=== PATIENT | female | born 1990 | race African-American/Black ===

== ENCOUNTER 2017-07-13 09:58 | Day surgery (SDC) | payer OTHER ==
[2017-07-13 10:09] VITALS: BMI 34.5
[2017-07-13] MEDS ORDERED: Acetaminophen 500 MG TAB PO SCH (11:15)
[2017-07-13] MEDS ORDERED: Morphine 10 MG/ML VIAL IM SCH (11:30)
--- NOTE | 2017-07-13 11:52 | ER ---
DATE OF ENCOUNTER: 07/13/2017 OB ER ENCOUNTER PRIMARY PHLEBOTOMIST LAB ASSISTANT: Dr. Lily Edwards. CHIEF COMPLAINT: Abdominal pains. HISTORY OF PRESENT ILLNESS: The patient is a 27-year-old G4, P2 female with an intrauterine at 37 weeks today, who is followed by Dr. Edwards. She has a history of 2 previous C-sections and is presenting today with abdominal pain. The patient was evaluated earlier this morning in [place] and was found to be fingertip, but not laboring. Patient admits that her pain has been more of the chronic nature, associated with activity and movement and that she is just tired of this point in her . The patient does reports she is having contractions, but her primary pain is in her abdomen with activity and shooting into her vaginal and labial region. She has small children at home that she has been caring for, which has exacerbated her problem. She believes that her most current problem started after spending a long day outdoors walking and supporting her children in a sporting event. The patient denies fever, headache, chest pain, shortness of breath, nausea, vomiting, diarrhea, constipation. She denies new rashes. She denies vaginal bleeding, leakage of fluid, or urinary problems. Patient has Tylenol #3 at home that she reports has not been helpful. PAST MEDICAL HISTORY: Negative. PAST SURGICAL HISTORY: Previous x2. ALLERGIES: No known drug allergies. SOCIAL HISTORY: Denies drug, alcohol, or tobacco use. MEDICATIONS: vitamins and then Tylenol #3 for a tooth problem. OB LABS: Unavailable at time of dictation. REVIEW OF SYSTEMS: Per HPI. PHYSICAL EXAMINATION: VITAL SIGNS: Blood pressure is 121/83, heart rate of 83, respiratory rate of 18 , satting 99% on room air, temperature is 98.5. GENERAL: She appears to be in no acute distress. She is alert and oriented, cooperative, and pleasant to interact with. HEENT: Head is normocephalic, atraumatic. LUNGS: Clear to auscultation bilaterally. HEART: Regular rate and rhythm. ABDOMEN: Gravid, but soft. She does have some tenderness to deviation of the uterus and in the lower pelvic region. EXTREMITIES: Nontender with minimal edema bilaterally. EXAM: Cervix is closed, thick, and high per nursing staff. heart tracing performed for abdominal pains. Baselines noted to be in the 130s with moderate long-term variability, positive accelerations, no decelerations. Tocometer showing some irritability, but no consistent contraction pattern. After discussing the patient's current situation, she is very accepting with the knowledge that she is not in active labor. We are addressing to help her with her pain temporarily. I have offered her 8 mg of morphine IM, which should be able to give her some rest for the next several hours and 2 Tylenol. I have encouraged her to take her Tylenol or Tylenol 3 every 6 hours on a regular basis as needed for improvement of her pain. The patient has an appointment with Dr. Edwards on Friday. She has a scheduled date for her C- section. The fetus is reassuring and reactive. The patient is being discharged home. BEVERLEY
== END 2017-07-13 11:50 | disposition home or self-care (01) ==
LOC: L&D/OP 09:58
PROVIDERS: ATTEND Obstetrics & Gynecology
DX: O99.89 Other specified diseases and conditions complicating pregnancy, childbirth and the puerperium (principal); R10.9 Unspecified abdominal pain; Z3A.37 37 weeks gestation of pregnancy; Z98.891 History of uterine scar from previous surgery
CPT/HCPCS: 96372; 99282; J2270

== ENCOUNTER 2017-07-16 00:56 | Day surgery (SDC) | payer OTHER ==
[2017-07-16 01:39] VITALS: BMI 34.5
--- NOTE | 2017-07-16 03:51 | PRG ---
OB ER ENCOUNTER DATE OF ENCOUNTER: 07/16/2017 PRIMARY BUSINESS CONTROL MANAGER: Dr. Lily Edwards. CHIEF COMPLAINT: Vaginal spotting and decreased movement. HISTORY OF PRESENT ILLNESS: Patient is a 27-year-old G4, P2 female with an intrauterine at 37 weeks and 3 days, followed by Dr. Edwards. Patient has a history of 2 previous C sections and is scheduled on 07/31/2017 to have a repeat scheduled section. Patient reports that today when she went to the bathroom that she noticed some spotting, she also reports that she has not had any move ment since about 2:00 this afternoon until she got here to the hospital. She denies uterine contract ions, leakage of fluid, any other spotting or bleeding. She denies any falls, fever, headache, chest pain, shortness of breath, any nausea, vomiting, diarrhea, constipation. She denies rash, any urina ry urgency, frequency. PAST MEDICAL HISTORY: Anemia. PAST SURGICAL HISTORY: She has had wisdom teeth removed in 2010 and two previous C-sections. SOCIAL HISTORY: Denies drug, alcohol, or tobacco use. ALLERGIES: No known drug allergies. MEDICATIONS: vitamins. Blood type A positive, antibody screen is negative, HIV of the first and third trimester is nonreacti ve. RPR in the first and third trimester is nonreactive. Hepatitis B surface antigen is nonreactive . Blood type is A positive, antibody screen is negative. She is rubella immune. REVIEW OF SYSTEMS: Per HPI. PHYSICAL EXAMINATION: VITAL SIGNS: Blood pressure is 117/76, heart rate of 91, respiratory rate of 16, satting 99% on room air, temperature 98.5. GENERAL: She appears to be in no acute distress. She is alert and oriented, cooperative and pleasan t to interact with. HEAD: Normocephalic, atraumatic. LUNGS: Clear to auscultation bilaterally. HEART: Regular rate and rhythm. ABDOMEN: Gravid and soft, nontender. EXTREMITIES: Nontender, nonedematous. CERVICAL EXAM: Per nursing staff, she is closed, thick, and high. There is no bleeding on the glove . heart tracing performed for decreased movement. Fetus noted to have a heart rate in the 140s with moderate long-term variability, positive accelerations, no decelerations. Tocometer shows some irritability. ASSESSMENT AND PLAN: Patient is a 27-year-old G4, P2 female with an intrauterine at 37 wee ks with some isolated spotting and decreased movement. Patient has been given reassurance with a reactive NST and no more evidence of bleeding at this time. Patient, although there is no evidenc e at this point of anything to be concerned, patient is uncomfortable going home. We will monitor th e patient for a few more hours for any spotting. Patient has been given instructions to notify the n ursing staff if she notices any more spotting or bleeding.
== END 2017-07-16 03:55 | disposition home health service (06) ==
LOC: EEVIPCON 00:56 → L&D/OP 00:56
PROVIDERS: ATTEND Obstetrics & Gynecology
DX: O26.853 Spotting complicating pregnancy, third trimester (principal); O36.8130 Decreased fetal movements, third trimester, not applicable or unspecified; Z79.899 Other long term (current) drug therapy; Z3A.37 37 weeks gestation of pregnancy; Z98.891 History of uterine scar from previous surgery
CPT/HCPCS: 99282

== ENCOUNTER 2018-12-02 16:50 | Inpatient (IN) | payer OTHER ==
[2018-12-02 17:39] VITALS: BMI 36.8
[2018-12-02] MEDS ORDERED: Ondansetron PF 4 MG/2 ML Vial IVP PRN (18:00)
[2018-12-02] MEDS ORDERED: Acetaminophen 500 MG TAB PO PRN (18:00)
[2018-12-02] MEDS ORDERED: Butorphanol Tartrate 1 MG/ML VIAL SLOW IVP PRN (18:00)
[2018-12-02] MEDS ORDERED: Promethazine HCl 25 MG/ML VIAL IM PRN (18:00)
[2018-12-02] MEDS ORDERED: hydrALAZINE 20 MG/ML VIAL SLOW IVP PRN (18:00)
--- NOTE | 2018-12-02 18:10 | PDOC.LDHP ---
Labor and Delivery H&P Chief complaint: other HPI: 28 yo @ 35w6d by LMP c/w 11 week CRL who presents for admission from clinic due to oligohydramnios. Amnisure neg. H/O CS x3 and h/o PPROM, now on [place]. Carrier of sickle cell trait. Current gestational age (weeks): 35 Dating criteria: last menstrual period Grav: 5 Para: 3 OB History Details: 2 term CS 1 CS for PPROM @ 36 weeks 1 SAB Current complications: none Abnormal US findings: Yes (DOMINIQUE 4.5 today ) Past Medical History: Anemia Current medications: pre-yamilex vitamins, iron Previous surgical history: low tranverse CS (x3) Allergies/Adverse Reactions: Allergies Allergy/AdvReac Type Severity Reaction Status Date / Time No Known Allergies Allergy Verified 12/02/18 17:40 Social history: none - Physical Exam Vital signs reviewed and normal: yes General: NAD Heart: RRR Lungs: nonlabored breathing Abdomen: gravid Extremeties: no edema FHT: category 1 [place] contractions every: rare ctx - Vaginal Exam cm dilated: 0 (cephalic) Effacement: 0% Station: -3 - OB Labs Blood type: A RH: positive Antibody Screen: negative HIV: negative RPR: negative HEPSAg: negative 1 hour GCT: negative GBS: unknown Urine drug screen: negative Rubella: immune Additional Labs: SS wnl - Assessment 35w6d IUP Oligohydramnios Previous CS x3 Anemia - Plan Plan: observation in L&D, informed consent obtained, anesthesia consult for pain management -: Admit for observation, IVF hydration and BMTZ course. Repeat sono tomorrow Delivery pending sono tomorrow. T&C 2 untis RRS was declined by ethics committee
[2018-12-02] MEDS: Lactated Ringer's 1,000 ML IV SCH (18:41)
[2018-12-02 19:08] LABS: Hemoglobin 9.4 g/dL (12.0-16.0); Mean Corpuscular HGB CONC 33.5 g/dL (32.0-36.0); Mean Corpuscular Hemoglobin 24.8 pg (27.0-31.0); Mean Platelet Volume 9.3 fL (7.4-10.4); Platelet Count 316 thou/uL (130-400); Red Blood Cell (RBC) Count 3.77 mill/uL (4.20-5.40); White Blood Cell (WBC) Count 9.7 thou/uL (4.8-10.8)
[2018-12-02] MEDS: Betamet Acet/Betamet Na Ph 30 MG/5 ML VIAL IM SCH (19:28)
[2018-12-02 19:40] LABS: Syphilis Antibody Nonreactive (Nonreactive); Syphilis Antibody Index 0.06 S/CO (<1.00 Non-Reactive)
[2018-12-02 19:47] LABS: HBSAg Index 0.32 S/CO (0-0.99); HIV (1/2) Antibody/Antigen Non-Reactive (NonReactive); HIV 1/2 INDEX 0.25 S/CO (<1.00); Hep B Surf Ag Non-Reactive S/CO (NonReactive)
[2018-12-03] MEDS: Lactated Ringer's 1,000 ML IV SCH ×3 (01:12→17:42)
--- NOTE | 2018-12-03 07:55 | PDOC.LDPN ---
Labor & Delivery Progress Note - Subjective Subjective: comfortable - Objective Vital signs reviewed and normal: yes General: NAD Uterine fundus: non tender FHT: category 1 (120s, mod dionicio, +accels, no decels) [place] contractions every: no ctx - Assessment (1) 36 weeks gestation of Code(s): Z3A.36 - 36 WEEKS GESTATION OF Current Visit: Yes Status : Acute (2) Oligohydramnios Code(s): O41.00X0 - OLIGOHYDRAMNIOS, UNSP TRIMESTER, NOT APPLICABLE OR UNSP Current Visit: Yes Status: Acute -: Continue IVF and complete BMTZ Repeat sono for DOMINIQUE this morning. Keep NPO at this time, pending sono to determine delivery plan
--- NOTE | 2018-12-03 09:36 | ULT ---
Exam: NONSTRESS BIOPHYSICAL PROFILE: HISTORY: 35-weeks patient. Oligohydramnios. Comparison: None TECHNIQUE: Nonstress biophysical profile was performed. FINDINGS: Single intrauterine gestation with vertex presentation. Anterior placenta. Cervical length is 3.6 cm heart tones with a rate of 123 bpm Amniotic fluid index is 3.5 cm Nonstress biophysical profile: tone: 2 breathin movements: 2 Amniotic fluid: 0 Total score 4 out of 8: IMPRESSION: 1. Single intrauterine gestation with heart tones. 2. Nonstress biophysical profile score is 4 out of 8. Results were given to L&D nurse Dasia by the photographic process worker on 12/03/2018 at the time of the examination. Code CR Transcribed Date/Time: 12/03/2018 10:10 AM
[2018-12-03] MEDS: Betamet Acet/Betamet Na Ph 30 MG/5 ML VIAL IM SCH (09:49)
--- NOTE | 2018-12-03 11:32 | PDOC.EVN ---
Event Note - Event Note Event Note: BPP 6/10 despite hydration. FHTS currently cat 1 Will proceed with RCS today s/p BMTZ x2
[2018-12-03] MEDS ORDERED: CEFAZOLIN 2 GM, Admixture Fee 1 EACH in Sodium Chloride 0.9% 100 ML IVPB SCH (11:45)
[2018-12-03] MEDS ORDERED: CEFAZOLIN 2 GM in Premix Bag 1 BAG IVPB SCH (11:45)
[2018-12-03] MEDS ORDERED: Bicitra 30 ML UDCUP PO SCH (11:45)
[2018-12-03] MEDS ORDERED: Ondansetron PF 4 MG/2 ML Vial IVP PRN ×2 (13:27→15:35)
[2018-12-03] MEDS ORDERED: Naloxone HCl 0.4 mg/ml Vial IVP PRN ×4 (13:27→15:35)
[2018-12-03] MEDS ORDERED: Naloxone HCl 0.4 mg/ml Vial IV PRN ×2 (13:27→15:35)
[2018-12-03] MEDS ORDERED: Promethazine HCl 25 MG SUPP PR PRN ×2 (13:27→15:35)
[2018-12-03] MEDS ORDERED: Ketorolac Tromethamine 30 MG/ML VIAL IVP PRN (13:27)
[2018-12-03] MEDS ORDERED: Promethazine HCl 25 MG/ML VIAL IM PRN ×2 (13:27→15:35)
[2018-12-03] MEDS ORDERED: diphenhydrAMINE 50 MG/ML VIAL IVP PRN ×2 (13:27→15:35)
[2018-12-03] MEDS ORDERED: L&D-Morphine 4 MG/ML VIAL SLOW IVP PRN ×2 (13:28→15:22)
[2018-12-03] MEDS ORDERED: Meperidine HCl/PF 25 MG/ML VIAL SLOW IVP PRN ×2 (13:28→15:22)
[2018-12-03] MEDS ORDERED: HYDROmorphone 2 MG/ML VIAL SLOW IVP PRN ×2 (13:28→15:22)
[2018-12-03] MEDS ORDERED: Ondansetron HCl/PF 4 MG/2 ML Vial IVP PRN ×2 (13:28→15:22)
[2018-12-03] MEDS ORDERED: Communication Order-Pharmacy FS SCH ×2 (13:30→15:45)
[2018-12-03] MEDS ORDERED: Ketorolac Tromethamine 30 MG/ML VIAL IVP SCH ×2 (13:30→15:30)
[2018-12-03] MEDS ORDERED: MORPHINE 5 MG/10 ML PF VIAL ONE (14:18)
[2018-12-03] MEDS ORDERED: ePHEDrine/0.9% NaCl/PF SYRINGE 50 mg/10 ml ONE (14:19)
[2018-12-03] MEDS ORDERED: Oxytocin 10 UNITS/ML VIAL ONE ×2 (14:19→15:30)
--- NOTE | 2018-12-03 15:13 | OP ---
DATE OF PROCEDURE: 12/03/2018 MANAGER CHEMICAL NOTE: LOCATION: Labor and Delivery. PRINCIPAL SURGEON: Lily Edwards DO. ASSISTANTS: 1. Tim Medina MD. 2. Natasha Curry MD. PROCEDURE: Repeat Low Transverse Section Course: In brief, this is a patient who is at 36 weeks with oligohydramnios, prior , whom Dr. Edwards has elected to deliver by a repeat . I arrived to Labor and Delivery OR and assisted with the repeat , which occurred without complication. This was performed via Pfannenstiel skin incision. There were no intraabdominal pelvic adhesions. I was present from the start of the surgical case until uterine closure. At the time of uterine closure, and after confirming hemostasis, Dr. Natasha Curry, who was also scrubbed in, stepped in as first grade teacher and continued with the abdominal wall closure. Job ID: [id number] MTDD
--- NOTE | 2018-12-03 16:18 | PDOC.OPDEL ---
OB Operative/Delivery Note Delivery Dr/Surgeon: Lily Edwards DO Assist: Tim Medina MD Pre-Delivery Diagnosis: medically indicated induction Procedure/Post Delivery Dx: repeat low transverse CS Weeks gestation: 36 Anesthesia: spinal - Findings A Sex: male - 1 min: 8 - 5 min: 9 - Additional Findings/Plan Placenta delivered: spontaneous findings: low transverse hysterotomy without extension, normal uterus, normal tubes, normal ovaries Estimated blood loss: QBL 150 cc Compilations/Other Findings: Dense scar on fascia Thin adhesions from dome of bladder to KELLY Scant clear AF Infant in cephalic presentation Normal appearing placenta Post delivery plan: routine recovery
[2018-12-03] MEDS ORDERED: diphenhydrAMINE 25 MG CAP PO PRN (16:54)
[2018-12-03] MEDS ORDERED: Bisacodyl 10 MG SUPP PR PRN (16:54)
[2018-12-03] MEDS ORDERED: Lanolin Ointment 7 GM TUBE TOP PRN (16:54)
[2018-12-03] MEDS ORDERED: Methylergonovine 0.2 MG/ML VIAL IM PRN (16:54)
[2018-12-03] MEDS ORDERED: hydrALAZINE 20 MG/ML VIAL SLOW IVP PRN (16:54)
[2018-12-03] MEDS ORDERED: NS / Oxytocin 40 units/1000ml 1,000 ML IV SCH (16:54)
[2018-12-03] MEDS ORDERED: Misoprostol 200 MCG TAB PR PRN (16:54)
[2018-12-03] MEDS ORDERED: Acetaminophen 325 MG TAB PO PRN (16:54)
[2018-12-03] MEDS: metroNIDAZOLE 500 MG TAB PO SCH ×2 (17:42→21:00)
[2018-12-03] MEDS: Ketorolac Tromethamine 30 MG/ML VIAL IVP PRN (17:43)
[2018-12-03] MEDS: Simethicone Chewable 80 MG TAB PO PRN (17:46)
[2018-12-03] MEDS: Ferrous Sulfate 325 MG TAB PO SCH (21:00)
[2018-12-03] MEDS: Docusate Calcium (SURFAK) 240 MG CAP PO SCH (21:08)
[2018-12-04] MEDS: Ketorolac Tromethamine 30 MG/ML VIAL IVP PRN (00:11)
[2018-12-04] MEDS ORDERED: Sodium Chloride 0.9% 10 ML ONE (00:26)
[2018-12-04] MEDS ORDERED: Zolpidem Tartrate 5 MG TAB PO PRN (03:45)
[2018-12-04 05:28] LABS: #Lymphocytes 1.7 thou/uL (1.20-3.40); #Monocytes 0.8 thou/uL (0.11-0.59); #Neutrophils 13.7 thou/uL (1.40-6.50); %Basophils 0.1 % (0.0-1.0); %Eosinophils 0.1 % (0.0-10.0); %Lymphocytes 10.7 % (21.0-51.0); %Monocytes 4.7 % (0.0-10.0); %Neutrophils 84.4 % (42.0-75.0); Hemoglobin 8.8 g/dL (12.0-16.0); Mean Corpuscular Hemoglobin 24.4 pg (27.0-31.0); Mean Corpuscular Volume 73.8 fL (78.0-98.0); Mean Platelet Volume 8.7 fL (7.4-10.4); Platelet Count 305 thou/uL (130-400); RBC Distribution Width 14.8 % (11.5-14.5); Red Blood Cell (RBC) Count 3.62 mill/uL (4.20-5.40); White Blood Cell (WBC) Count 16.3 thou/uL (4.8-10.8)
[2018-12-04] MEDS: HYDROcodone/Acetaminophen 5/325 mg Tablet PO PRN ×3 (06:54→19:52)
--- NOTE | 2018-12-04 08:03 | PDOC.PP ---
Post Progress Note Post Day #: 1 Subjective: Pain controlled. Minimal lochia. Freire just removed. Breast feeding. PO intake tolerated: yes Flatus: yes Ambulation: yes Vital Signs (12 hours) Temp Pulse Resp BP 12/04/18 04:00 97.9 F 69 17 118/62 12/04/18 00:00 98.1 F 68 17 120/65 Weight Weight 195 lb - Physical Examination General: NAD Cardiovascular: RRR Respiratory: non-labored breathing Abdominal: no distention, appropriately TTP Fundus firm & at: below umbilicus Extremities: negative homans (B) Skin: CS incision dry & intact, no rash Neurological: no gross focal deficits Psychiatric: A&Ox3, normal affect Result Diagrams: 12/04/18 05:14 Additional Labs: Post Labs Blood Type A POSITIVE 12/02/18 19:56 Hep Bs Antigen Non-Reactive S/CO (NonReactive) 12/02/18 18:49 (1) 36 weeks gestation of Code(s): Z3A.36 - 36 WEEKS GESTATION OF Status: Resolved (2) Oligohydramnios Code(s): O41.00X0 - OLIGOHYDRAMNIOS, UNSP TRIMESTER, NOT APPLICABLE OR UNSP Status: Resolved (3) Status post repeat low transverse section Code(s): Z98.891 - HISTORY OF UTERINE SCAR FROM PREVIOUS SURGERY Status: Acute (4) Anemia Code(s): D64.9 - ANEMIA, UNSPECIFIED Status: Acute Qualifiers: Anemia type: iron deficiency Iron deficiency anemia type: unspecified iron deficiency Qualified Code(s): D50.9 - Iron deficiency anemia, unspecified (5) Bacterial vaginosis Code(s): N76.0 - ACUTE VAGINITIS; B96.89 - OTH BACTERIAL AGENTS THE CAUSE OF DISEASES CLASSD ELSWHR Status: Acute - Assessment/Plan PPD1 VSSAF Anemia due to chronic + acute, iron BID. Complete flagyl for BV Continue routine PP/post op care. Plan for d/c 1-2 days due to CS and 36 weeks.
[2018-12-04] MEDS: Ibuprofen 800 MG TAB PO SCH ×2 (08:51→17:06)
[2018-12-04] MEDS: Prenatal Vitamin 1 TAB PO SCH ×2 (08:52→08:53)
[2018-12-04] MEDS: metroNIDAZOLE 500 MG TAB PO SCH ×2 (08:52→20:10)
[2018-12-04] MEDS: Ferrous Sulfate 325 MG TAB PO SCH ×2 (08:54→19:52)
[2018-12-04] MEDS: Docusate Calcium (SURFAK) 240 MG CAP PO SCH ×2 (08:55→19:52)
--- NOTE | 2018-12-04 14:34 | OP ---
DATE OF PROCEDURE: 12/03/2018 PREOPERATIVE DIAGNOSES: 1. A 36 weeks and zero day intrauterine . 2. Previous section x3. 3. Persistent oligohydramnios. 4. Biophysical profile, 6/10. POSTOPERATIVE DIAGNOSES: 1. A 36 weeks and zero day intrauterine . 2. Previous section x3. 3. Persistent oligohydramnios. 4. Biophysical profile, 6/10. PROCEDURE PERFORMED: Repeat low-transverse delivery via Pfannenstiel skin incision. ASSISTANTS: Tim Medina MD and Natasha Curry MD. COMPLICATIONS: None. QUANTITATIVE BLOOD LOSS: 150 mL. URINARY OUTPUT: 400 mL. ANESTHESIA: Spinal. FINDINGS: Dense scar along the fascia and rectus muscles. Thin adhesions from the lower uterine segment to the dome of the bladder. Scant clear amniotic fluid. in cephalic presentation. Normal-appearing placenta, normal-appearing fallopian tubes and ovaries bilaterally, and normal-appearing uterus. INDICATIONS FOR PROCEDURE: Ms. Lola Trevino is a 28-year-old, G5, P3, who was admitted at 35 weeks 6 days due to oligohydramnios with an DOMINIQUE of 4.5. She underwent observation with IV fluid hydration. Her repeat sonogram showed an DOMINIQUE of 3.9, and also a total biophysical profile of 6/10. Due to these findings, delivery was recommended and due to her history of 3 prior deliveries, a repeat was arranged. The patient did receive betamethasone for lung maturity prior to delivery. DESCRIPTION OF PROCEDURE: The patient was brought to the operating room. She was placed under spinal anesthesia. The patient was placed in the supine position with a leftward tilt. A Freire catheter was placed. She was prepped and draped in a sterile fashion. An official time-out was performed. She was given Ancef for surgical prophylaxis. A Pfannenstiel skin incision was made using the scalpel and it was carried down to the underlying fascial layer. The fascia was incised in the midline using the scalpel and extended bilaterally using both the scalpel and Batista scissors. The superior aspect of the fascial incision was grasped using Noreen clamps, tented upward, dissected free from the underlying rectus abdominis muscles and the same was done to the inferior aspect. The scar tissue was noted along the midline. The rectus abdominis muscles were grasped with Allis clamps, elevated , and incised using Batista scissors. This incision was extended and the peritoneum was incised using sharp dissection. The peritoneal incision was then extended using blunt dissection. Jaime O retractor was then placed in the abdomen. A low-transverse hysterotomy was made using the scalpel, this was extended using blunt dissection. Amniotic membranes were ruptured noting clear amniotic fluid; however, scant. The infant was delivered in cephalic presentation. The infant's cord was clamped and cut. The infant was handed to the awaiting Neonatology team. Cord blood was obtained. The placenta was delivered spontaneously intact. The uterus was cleared of all clot and debris. Hysterotomy was closed in a running, locking fashion, obtaining hemostasis with 1 Monocryl. The pelvis was irrigated and cleared of all clot and debris, and the bilateral fallopian tubes and ovaries were evaluated and normal in appearance. Jaime O retractor was removed from the abdomen. Again, the hysterotomy was evaluated and normal in appearance. The peritoneum was closed in a running fashion using 2-0 chromic. The rectus abdominis muscles were hemostatic with use of the Bovie. The fascia was closed using 0 PDS. Subcutaneous layer was copiously irrigated and hemostatic with use of the Bovie. Subcutaneous layer was closed using 3-0 Vicryl and the skin was closed using 4-0 Monocryl and Dermabond. There were no complications. All counts were correct x3. The patient and will be transferred to routine recovery. Job ID: [id number] [facility]
[2018-12-04] MEDS: Simethicone Chewable 80 MG TAB PO PRN (20:10)
[2018-12-04] MEDS ORDERED: Ibuprofen 800 MG TAB PO SCH (22:00)
[2018-12-05] MEDS: HYDROcodone/Acetaminophen 5/325 mg Tablet PO PRN ×6 (00:06→20:59)
[2018-12-05] MEDS: Ibuprofen 800 MG TAB PO SCH ×3 (00:06→17:41)
--- NOTE | 2018-12-05 07:41 | PDOC.PP ---
Post Progress Note Post Day #: 2 Subjective: pod #2 s/p rltcs. reporting some problem with pain on current regimen. asking for an abdominal binder PO intake tolerated: yes Flatus: yes Ambulation: yes Vital Signs (12 hours) Temp Pulse Resp BP 12/05/18 00:00 97.8 F 67 18 121/66 Weight Weight 195 lb - Physical Examination General: NAD Respiratory: non-labored breathing Abdominal: no distention, appropriately TTP Extremities: negative homans (B) Skin: CS incision dry & intact, no rash Neurological: no gross focal deficits Psychiatric: A&Ox3, normal affect Result Diagrams: 12/04/18 05:14 Additional Labs: Post Labs Blood Type A POSITIVE 12/02/18 19:56 Hep Bs Antigen Non-Reactive S/CO (NonReactive) 12/02/18 18:49 - Assessment/Plan POD#2 s/p RLTCS continue routine care. anticipate dc tomorrow. binder ordered to attempt better pain control.
[2018-12-05] MEDS: Ferrous Sulfate 325 MG TAB PO SCH ×2 (08:31→20:58)
[2018-12-05] MEDS: metroNIDAZOLE 500 MG TAB PO SCH ×2 (08:31→20:59)
[2018-12-05] MEDS: Prenatal Vitamin 1 TAB PO SCH (08:31)
[2018-12-05] MEDS: Docusate Calcium (SURFAK) 240 MG CAP PO SCH ×2 (08:32→21:11)
[2018-12-05] MEDS: Simethicone Chewable 80 MG TAB PO PRN (09:34)
[2018-12-05] MEDS: Lactated Ringer's 1,000 ML IV SCH ×3 (16:38→21:09)
[2018-12-06] MEDS: Ibuprofen 800 MG TAB PO SCH ×4 (01:44→21:39)
[2018-12-06] MEDS: HYDROcodone/Acetaminophen 5/325 mg Tablet PO PRN ×3 (01:44→17:18)
[2018-12-06] MEDS: Lactated Ringer's 1,000 ML IV SCH ×3 (04:09→17:30)
--- NOTE | 2018-12-06 06:26 | PDOC.PP ---
Post Progress Note Post Day #: POD3 Subjective: doing well, no new issues PO intake tolerated: yes Flatus: yes Ambulation: yes Vital Signs (12 hours) Temp Pulse Resp BP BP 12/06/18 05:49 98.2 F 72 20 130/76 12/06/18 02:00 98.2 F 79 20 123/62 12/05/18 20:15 98.4 F 82 16 126/78 Weight Weight 195 lb - Physical Examination General: NAD Cardiovascular: no m/r/g Respiratory: clear to auscultation bilaterally Abdominal: + bowel sounds, lochia, no distention, appropriately TTP Extremities: negative homans (B) Skin: CS incision dry & intact Neurological: no gross focal deficits Psychiatric: A&Ox3, normal affect Result Diagrams: 12/04/18 05:14 Additional Labs: Post Labs Blood Type A POSITIVE 12/02/18 19:56 Hep Bs Antigen Non-Reactive S/CO (NonReactive) 12/02/18 18:49 (1) Status post repeat low transverse section Code(s): Z98.891 - HISTORY OF UTERINE SCAR FROM PREVIOUS SURGERY Status: Acute - Assessment/Plan doing well on POD 3 and cleared for DC to home Motrin prn F/U as scheduled with her
[2018-12-06] MEDS: Prenatal Vitamin 1 TAB PO SCH (08:10)
[2018-12-06] MEDS: metroNIDAZOLE 500 MG TAB PO SCH ×2 (08:11→21:39)
[2018-12-06] MEDS: Simethicone Chewable 80 MG TAB PO PRN (08:11)
[2018-12-06] MEDS: Docusate Calcium (SURFAK) 240 MG CAP PO SCH ×2 (08:11→21:40)
[2018-12-06] MEDS: Ferrous Sulfate 325 MG TAB PO SCH ×2 (08:11→21:39)
[2018-12-06 22:02] VITALS: BP 139/80; TEMP 97.9
--- NOTE | 2018-12-09 21:03 | PQF ---
[employer] Manager Crystal Reports Winform Viewer PHUC CABELLO CANDICE [id number] CLINICAL DOCUMENTATION CLARIFICATION FORM: POST DISCHARGE Addendum to original discharge summary date: ____ Late entry note date: __ DATE: 12/09/18 ATTN: Lily Andrews Please exercise your independent, professional judgment in responding to the clarification form. Clinical indicators are provided on the bottom of this form for your review Diagnosis: Bacterial vaginosis- PN 12/04/18 Dr. Edwards pg.2 Present on Admission (POA): [ ] Yes [ ] No [ ] Unable to determine Coding guidelines require hospitals to identify whether a diagnosis was present on admission (POA) or not. To accurately assign the appropriate POA indicator, this information must be clearly documented within the medical record. CLINICAL INDICATORS - Labor and delivery summary-12/02/18 pg.1- "Delivery Date: 12/03/18 14:48 CDT OB/GYNEH and P pg.18/14 pg.1- "Presents for admission from clinic due to oligohydramnios" RISK FACTORS: 28 yo @ 35w6D by LMP c/w 11 week CRL-OB/GYNE H and P pg.18/14 pg.1 H/O CSx3-OB/GYNE H and P pg.18/14 pg.1 TREATMENT: Metronidazole (Flagyl)500mg PO - 12/03/18 9:00 Cefazolin (Ancef)2gm IV- JUN 26 IV Fluids- 12/02/18 (This form is maintained as a part of the permanent medical record) 2014 [employer]. All Rights Reserved Reji [email or web address] [not provided] MTDD
== END 2018-12-06 21:50 | disposition home or self-care (01) | DRG 788 ==
LOC: L&D/OP 16:50 → OBSVTOIN 18:35 → L&D 18:35 → 3SW 12-03 17:26
PROVIDERS: ADMIT Obstetrics & Gynecology; ATTEND Obstetrics & Gynecology
PROC: 10D00Z1 Extraction of Products of Conception, Low, Open Approach (ICD-10-PCS; principal; 2018-12-03)
DX: O41.03X0 Oligohydramnios, third trimester, not applicable or unspecified (principal); O34.211 Maternal care for low transverse scar from previous cesarean delivery; O99.02 Anemia complicating childbirth; D57.3 Sickle-cell trait; D50.9 Iron deficiency anemia, unspecified; Z37.0 Single live birth; Z3A.36 36 weeks gestation of pregnancy
CPT/HCPCS: 36415; 51702; 76819; 84112; 85025; 85027; 86780; 86850; 86900; 86901; 87077; 87081; 87340; 87389; 87480; 87510; 87660; 88307; 99285; J0690; J0702; J1200; J1885; J2274; J2310; J2405; J2590; J3490; Q0163